=== PATIENT | male | born 1950 | race Caucasian/White ===

== ENCOUNTER 2020-01-29 06:40 | Inpatient (IN) ==
[~2020-01-29 06:40] MED LIST: Famotidine 20 MG/2 ML VIAL IVP ONE; Gabapentin 300 MG CAPSULE PO ONE; Ringers Solution, Lactated 1,000 ML IVC SCH
[2020-01-29] MEDS ORDERED: *HR* Propofol 200 MG/20 ML VIAL IVP ONE (07:03)
[2020-01-29] MEDS ORDERED: *HR* Remifentanil 1 MG VIAL IVP ONE ×3 (07:03→12:28)
[2020-01-29] MEDS ORDERED: *HR* Midazolam HCl 2 MG/2 ML VIAL ONE (07:03)
[2020-01-29] MEDS ORDERED: Lidocaine -MPF 2% 2 ML VIAL ONE (07:04)
[2020-01-29] MEDS ORDERED: Dexamethasone 4 MG/ML VIAL ONE (07:04)
[2020-01-29] MEDS ORDERED: *HR* Rocuronium Bromide 50 MG/5 ML VIAL ONE (07:04)
[2020-01-29] MEDS ORDERED: Lidocaine HCL 4 ML Topical Solution (Laryng-O-Jet Kit Sterile Pak) TP ONE (07:04)
[2020-01-29] MEDS ORDERED: *HR* Succinylcholine 200 MG/10 ML VIAL IVP ONE (07:04)
[2020-01-29] MEDS ORDERED: Ondansetron 4 MG/2 ML VIAL ONE (07:04)
[2020-01-29] MEDS ORDERED: CeFAZolin Syr 2,000MG/20 ML 2,000 MG/20 ML SYRINGE IVPB ONE (07:10)
[2020-01-29] MEDS ORDERED: *HR* FentaNYL (PF) 100 MCG/2 ML VIAL IVP PRN (07:45)
[2020-01-29] MEDS ORDERED: Albuterol 2.5 MG/3 ML NEBULIZER IH PRN (07:45)
[2020-01-29] MEDS ORDERED: Acetaminophen IV 1,000 MG/100 ML BAG IVPB ONE (07:45)
[2020-01-29] MEDS ORDERED: Bacitracin 50,000 UNIT, Polymyxin B Sulfate 500,000 UNIT, Sodium Chloride IRRigation 1,... IR ONE (07:45)
[2020-01-29] MEDS ORDERED: EPHEDrine 50 MG/ML VIAL ONE ×2 (08:20→09:55)
[2020-01-29] MEDS ORDERED: Albumin Human 5% 12.5 GM/250 ML IV.SOLN ONE ×2 (09:05)
[2020-01-29] MEDS ORDERED: 0.9 % Sodium Chloride 300 ML ONE (10:29)
[2020-01-29] MEDS ORDERED: *HR* HYDROMORPHONE 2 MG/ML VIAL ONE (13:55)
[2020-01-29] MEDS ORDERED: ceFAZolin 2,000 MG in Water for inj. (sterile) 20 ML IVP ONE (15:36)
[2020-01-29] MEDS ORDERED: CeFAZolin 2 GM/100 ML BAG IVPB ONE (16:00)
[2020-01-29] MEDS ORDERED: CeFAZolin 2 GM/120 ML BAG IVPB ONE (16:00)
[2020-01-29] MEDS: *HR* HYDROmorphone PF 0.5 MG/0.5 ML SYRINGE IVP PRN ×4 (16:22→17:17)
[2020-01-29] MEDS ORDERED: Naloxone 0.4 MG/ML INJ IVP PRN (17:55)
[2020-01-29] MEDS ORDERED: Ondansetron 4 MG/2 ML VIAL IVP PRN (17:55)
[2020-01-29] MEDS: Ringers Solution, Lactated 1,000 ML IVC SCH (18:13)
[2020-01-29] MEDS: *HR* OxyCODONE Immed Rel 5 MG TABLET PO PRN (20:07)
[2020-01-29] MEDS: *HR* HYDROcodone/Acet 5/325 mg TABLET PO PRN (21:41)
[2020-01-29] MEDS: Gabapentin 400 MG CAPSULE PO SCH (21:41)
[2020-01-30] MEDS: *HR* OxyCODONE Immed Rel 5 MG TABLET PO PRN ×5 (00:16→20:58)
[2020-01-30] MEDS: CeFAZolin 2 GM/120 ML BAG IVPB SCH ×2 (00:16→08:20)
[2020-01-30 05:48] LABS: Basophils % 0.2 %; Hematocrit 32.8 % (37.5-50.1); Hemoglobin 10.7 g/dL (12.9-16.9); Immature Granulocytes % 0.4 % (0-4); Lymphocytes # 1.2 K/mcL (0.6-4.6); Lymphocytes % 10.5 %; Mean Corpuscular HGB Conc 32.6 g/dL (31.6-35.5); Mean Corpuscular Hemoglobin 30.1 pg (28.0-33.3); Mean Corpuscular Volume 92.1 fL (83.0-100.0); Mean Platelet Volume 9.8 fL (9.4-12.4); Monocytes # 1.3 K/mcL (0.0-1.3); Monocytes % 11.1 %; Platelet Count 149 K/mcL (140-400); Red Blood Count 3.56 M/mcL (4.19-5.50); Red Cell Distribution Width 12.6 % (11.5-14.5); Segmented Neutrophils % 77.8 %; White Blood Count 11.5 K/mcL (4.3-11.1)
[2020-01-30 06:07] LABS: BUN/Creatinine Ratio 18 (6-26); Blood Urea Nitrogen 17 mg/dL (8-23); Calcium 7.9 mg/dL (8.6-10.3); Carbon Dioxide 28 mEq/L (23-29); Chloride 105 mEq/L (98-107); Glucose 124 mg/dL (70-105); Osmolality,Calculated 287 (280-300); Potassium 3.6 mEq/L (3.5-5.1); Sodium 137 mEq/L (136-145); eGFR For African Americans > 60 (> 60); eGFR For Non-African Americans > 60 (> 60)
[2020-01-30] MEDS: Lactobacillus 1 EACH CAP.SPRINK PO SCH (08:19)
[2020-01-30] MEDS: Gabapentin 400 MG CAPSULE PO SCH ×2 (08:19→20:58)
[2020-01-30] MEDS: Cholecalciferol (D-3) 1,000 UNIT (25MCG) TABLET PO SCH (08:19)
[2020-01-30] MEDS ORDERED: NON-FORMULARY MEDICATION 1 EACH EACH (Cranberry 500 MG) PO SCH (09:00)
[2020-01-30] MEDS ORDERED: [UNRECOGNIZED DRUG - OTHER] PO SCH (09:00)
[2020-01-30] MEDS: Gabapentin 300 MG CAPSULE PO SCH (15:11)
[2020-01-30] MEDS: Ringers Solution, Lactated 1,000 ML IVC SCH ×2 (15:27→20:36)
[2020-01-30] MEDS: tiZANidine 4 MG TABLET PO PRN ×2 (15:27→20:57)
[2020-01-30] MEDS: Acetaminophen 325 MG TABLET PO PRN ×2 (16:23→22:27)
[2020-01-30 18:44] LABS: Bilirubin,Urine Negative (Negative); Blood,Urine Moderate (Negative); Clarity,Urine Clear (Clear); Color,Urine Light-Yellow (Yellow); Glucose,Urine (UA) Normal (Normal); Ketones,Urine 10 mg/dL (Negative); Leukocyte Esterase,Urine Negative (Negative); Mucus,Urine Few per lpf (None-Few); Nitrite,Urine Negative (Negative); Protein,Urine Trace mg/dL (Neg-Trace); RBC,Urine 50-100 per hpf (0-3); Squamous Epithelial Cell,Urine Few per hpf (None-Few); Urobilinogen,Urine Normal (Normal); WBC,Urine 0-3 per hpf (0-3)
[2020-01-31 01:28] LABS: Hematocrit 29.3 % (37.5-50.1); Hemoglobin 9.6 g/dL (12.9-16.9); Mean Corpuscular HGB Conc 32.8 g/dL (31.6-35.5); Mean Corpuscular Hemoglobin 30.5 pg (28.0-33.3); Mean Platelet Volume 10.2 fL (9.4-12.4); Platelet Count 133 K/mcL (140-400); Red Blood Count 3.15 M/mcL (4.19-5.50); Red Cell Distribution Width 12.8 % (11.5-14.5); White Blood Count 12.1 K/mcL (4.3-11.1)
[2020-01-31] MEDS: Ringers Solution, Lactated 1,000 ML IVC SCH ×3 (01:32→20:29)
[2020-01-31] MEDS: *HR* OxyCODONE Immed Rel 5 MG TABLET PO PRN ×4 (01:32→19:16)
[2020-01-31] MEDS ORDERED: Acetaminophen IV 500 MG/50 ML BAG IVPB ONE ×2 (01:36→05:59)
[2020-01-31] MEDS: cefTRIAXone 1,000 MG in Water for inj. (sterile) 10 ML IVP SCH (02:07)
[2020-01-31] MEDS: Azithromycin 500 MG in D5% in Water 250 ML IVPB SCH (02:24)
[2020-01-31] MEDS: tiZANidine 4 MG TABLET PO PRN ×2 (06:09→19:15)
[2020-01-31 06:33] LABS: Alanine Aminotransferase 22 Units/L (7-52); Albumin 3.3 g/dL (3.5-5.7); Albumin/Globulin Ratio 1.4 (1.1-2.2); Alkaline Phosphatase 33 Units/L (34-104); Aspartate Amino Transferase 52 Units/L (13-39); BUN/Creatinine Ratio 14 (6-26); Bilirubin,Total 0.6 mg/dL (0.3-1.0); Blood Urea Nitrogen 14 mg/dL (8-23); Calcium 7.9 mg/dL (8.6-10.3); Carbon Dioxide 26 mEq/L (23-29); Chloride 104 mEq/L (98-107); Globulin 2.3 g/dL (2.4-3.5); Glucose 115 mg/dL (70-105); Osmolality,Calculated 283 (280-300); Phosphorous 1.9 mg/dL (2.7-4.5); Potassium 3.8 mEq/L (3.5-5.1); Sodium 136 mEq/L (136-145); Total Protein 5.6 g/dL (6.4-8.9); eGFR For African Americans > 60 (> 60); eGFR For Non-African Americans > 60 (> 60)
[2020-01-31] MEDS: Gabapentin 400 MG CAPSULE PO SCH ×2 (08:17→19:15)
[2020-01-31] MEDS: Lactobacillus 1 EACH CAP.SPRINK PO SCH (08:17)
[2020-01-31] MEDS: Cholecalciferol (D-3) 1,000 UNIT (25MCG) TABLET PO SCH (08:18)
[2020-01-31] MEDS: *HR* HYDROcodone/Acet 5/325 mg TABLET PO PRN (08:18)
[2020-01-31 11:08] LABS: Adenovirus Not Detected (Not Detect); Bordetella Pertussis Not Detected (Not Detect); Chlamydophila pneumoniae Not Detected (Not Detect); Coronavirus 229E Not Detected (Not Detect); Coronavirus HKU1 Not Detected (Not Detect); Coronavirus NL63 Not Detected (Not Detect); Coronavirus OC43 Not Detected (Not Detect); Human Metapneumovirus Not Detected (Not Detect); Human Rhinovirus/Enterovirus Not Detected (Not Detect); Influenza A Subtype 2009 H1 Not Detected (Not Detect); Influenza B Not Detected (Not Detect); Mycoplasma pneumoniae Not Detected (Not Detect); Parainfluenza Virus 1 Not Detected (Not Detect); Parainfluenza Virus 2 Not Detected (Not Detect); Parainfluenza Virus 3 Not Detected (Not Detect); Parainfluenza Virus 4 Not Detected (Not Detect); Respiratory Syncytial Virus Not Detected (Not Detect); SARS-CoV-2 Not Detected (Not Detect)
[2020-01-31] MEDS: Gabapentin 300 MG CAPSULE PO SCH (15:48)
[2020-02-01] MEDS: tiZANidine 4 MG TABLET PO PRN (02:19)
[2020-02-01] MEDS: *HR* HYDROcodone/Acet 5/325 mg TABLET PO PRN (02:19)
[2020-02-01] MEDS: Azithromycin 500 MG in D5% in Water 250 ML IVPB SCH (02:19)
[2020-02-01] MEDS: cefTRIAXone 1,000 MG in Water for inj. (sterile) 10 ML IVP SCH (02:20)
[2020-02-01] MEDS ORDERED: 0.9 % Sodium Chloride 250 ML IVC ONE (04:05)
[2020-02-01] MEDS ORDERED: Acetaminophen IV 500 MG/50 ML BAG IVPB ONE (04:24)
[2020-02-01] MEDS: Ringers Solution, Lactated 1,000 ML IVC SCH (04:41)
[2020-02-01 05:19] LABS: Basophils % 0.3 %; Eosinophils % 0.1 %; Hematocrit 23.8 % (37.5-50.1); Immature Granulocytes % 0.3 % (0-4); Lymphocytes # 1.4 K/mcL (0.6-4.6); Lymphocytes % 11.3 %; Mean Corpuscular HGB Conc 33.2 g/dL (31.6-35.5); Mean Corpuscular Hemoglobin 31.2 pg (28.0-33.3); Mean Corpuscular Volume 94.1 fL (83.0-100.0); Mean Platelet Volume 10.4 fL (9.4-12.4); Monocytes # 1.6 K/mcL (0.0-1.3); Monocytes % 12.9 %; Neutrophils # 9.3 K/mcL (1.6-8.9); Platelet Count 113 K/mcL (140-400); Red Blood Count 2.53 M/mcL (4.19-5.50); Red Cell Distribution Width 12.5 % (11.5-14.5); Segmented Neutrophils % 75.1 %; White Blood Count 12.4 K/mcL (4.3-11.1)
[2020-02-01 05:20] LABS: Hemoglobin 7.9 g/dL (12.9-16.9)
[2020-02-01 05:38] LABS: BUN/Creatinine Ratio 16 (6-26); Blood Urea Nitrogen 16 mg/dL (8-23); Calcium 7.5 mg/dL (8.6-10.3); Carbon Dioxide 23 mEq/L (23-29); Chloride 100 mEq/L (98-107); Glucose 156 mg/dL (70-105); Osmolality,Calculated 278 (280-300); Potassium 3.6 mEq/L (3.5-5.1); Sodium 132 mEq/L (136-145); eGFR For African Americans > 60 (> 60); eGFR For Non-African Americans > 60 (> 60)
[2020-02-01 07:10] LABS: Hematocrit 25.3 % (37.5-50.1); Hemoglobin 8.3 g/dL (12.9-16.9)
[2020-02-01] MEDS ORDERED: *HR* HYDROcodone/Acet 5/325 mg TABLET PO PRN (08:03)
[2020-02-01] MEDS ORDERED: Acetaminophen 325 MG TABLET PO PRN (08:14)
[2020-02-01] MEDS: Gabapentin 400 MG CAPSULE PO SCH ×2 (08:45→19:38)
[2020-02-01] MEDS: Cholecalciferol (D-3) 1,000 UNIT (25MCG) TABLET PO SCH (08:45)
[2020-02-01] MEDS: Lactobacillus 1 EACH CAP.SPRINK PO SCH (08:46)
[2020-02-01] MEDS: 0.9 % Sodium Chloride 1,000 ML IVC SCH (08:46)
[2020-02-01] MEDS: MetroNIDAZOLE 500 MG/100 ML 500 MG/100 ML BAG IVPB SCH ×3 (08:46→23:43)
[2020-02-01] MEDS: Ipratropium/Albuterol Neb 3 ML IH SCH ×4 (09:01→21:11)
[2020-02-01 09:03] LABS: Phosphorous 1.8 mg/dL (2.7-4.5)
[2020-02-01] MEDS: *HR* OxyCODONE Immed Rel 5 MG TABLET PO PRN ×2 (10:03→19:40)
[2020-02-01] MEDS ORDERED: diazePAM 10 MG TABLET PO ONE (11:08)
[2020-02-01 13:51] LABS: Hematocrit 28.9 % (37.5-50.1); Hemoglobin 9.5 g/dL (12.9-16.9); Mean Corpuscular HGB Conc 32.9 g/dL (31.6-35.5); Mean Corpuscular Hemoglobin 30.6 pg (28.0-33.3); Mean Corpuscular Volume 93.2 fL (83.0-100.0); Mean Platelet Volume 10.1 fL (9.4-12.4); Platelet Count 126 K/mcL (140-400); Red Cell Distribution Width 12.4 % (11.5-14.5); White Blood Count 13.2 K/mcL (4.3-11.1)
[2020-02-01] MEDS: Gabapentin 300 MG CAPSULE PO SCH (14:56)
[2020-02-01] MEDS ORDERED: diazePAM 2 MG TABLET PO ONE (19:58)
[2020-02-01] MEDS ORDERED: *HR* Promethazine 25 MG/ML VIAL IVP ONE (21:22)
[2020-02-02] MEDS: Azithromycin 500 MG in D5% in Water 250 ML IVPB SCH (01:02)
[2020-02-02] MEDS: cefTRIAXone 1,000 MG in Water for inj. (sterile) 10 ML IVP SCH (01:02)
[2020-02-02] MEDS: 0.9 % Sodium Chloride 1,000 ML IVC SCH ×2 (01:03→21:44)
[2020-02-02] MEDS ORDERED: Pantoprazole 40 MG VIAL IVP SCH (02:08)
[2020-02-02 03:14] LABS: Basophils % 0.1 %; Hemoglobin 8.9 g/dL (12.9-16.9); Immature Granulocytes % 0.5 % (0-4); Lymphocytes # 0.4 K/mcL (0.6-4.6); Lymphocytes % 3.4 %; Mean Corpuscular Hemoglobin 30.6 pg (28.0-33.3); Mean Corpuscular Volume 92.8 fL (83.0-100.0); Mean Platelet Volume 10.5 fL (9.4-12.4); Monocytes % 8.2 %; Neutrophils # 11.2 K/mcL (1.6-8.9); Platelet Count 153 K/mcL (140-400); Red Blood Count 2.91 M/mcL (4.19-5.50); Red Cell Distribution Width 12.3 % (11.5-14.5); Segmented Neutrophils % 87.8 %; White Blood Count 12.7 K/mcL (4.3-11.1)
[2020-02-02 03:32] LABS: BUN/Creatinine Ratio 25 (6-26); Blood Urea Nitrogen 20 mg/dL (8-23); Calcium 7.7 mg/dL (8.6-10.3); Carbon Dioxide 21 mEq/L (23-29); Chloride 101 mEq/L (98-107); Glucose 153 mg/dL (70-105); Osmolality,Calculated 280 (280-300); Potassium 3.5 mEq/L (3.5-5.1); Sodium 132 mEq/L (136-145); eGFR For African Americans > 60 (> 60); eGFR For Non-African Americans > 60 (> 60)
[2020-02-02] MEDS: Ipratropium/Albuterol Neb 3 ML IH SCH ×4 (03:46→22:01)
[2020-02-02] MEDS: MetroNIDAZOLE 500 MG/100 ML 500 MG/100 ML BAG IVPB SCH ×2 (07:48→20:24)
[2020-02-02] MEDS: Gabapentin 400 MG CAPSULE PO SCH ×2 (07:49→21:44)
[2020-02-02] MEDS: Lactobacillus 1 EACH CAP.SPRINK PO SCH (07:50)
[2020-02-02] MEDS: Cholecalciferol (D-3) 1,000 UNIT (25MCG) TABLET PO SCH (07:51)
[2020-02-02 10:07] LABS: Hematocrit 26.7 % (37.5-50.1)
[2020-02-02] MEDS ORDERED: *HR* FentaNYL (PF) 100 MCG/2 ML VIAL ONE (11:48)
[2020-02-02] MEDS ORDERED: *HR* Propofol 200 MG/20 ML VIAL IVP ONE (11:49)
[2020-02-02] MEDS ORDERED: Dexamethasone 4 MG/ML VIAL ONE ×2 (12:01→12:06)
[2020-02-02] MEDS ORDERED: Ondansetron 4 MG/2 ML VIAL ONE (12:01)
[2020-02-02] MEDS ORDERED: Lidocaine -MPF 2% 2 ML VIAL ONE (12:01)
[2020-02-02] MEDS ORDERED: Ketorolac 30 MG/ML VIAL ONE (12:04)
[2020-02-02 16:03] LABS: Hematocrit 25.2 % (37.5-50.1); Hemoglobin 8.6 g/dL (12.9-16.9)
[2020-02-02] MEDS ORDERED: 0.9 % Sodium Chloride 250 ML ONE (16:21)
[2020-02-02] MEDS: Sucralfate 1 GM TABLET PO SCH (20:26)
[2020-02-02] MEDS: Gabapentin 300 MG CAPSULE PO SCH (20:57)
[2020-02-02] MEDS: *HR* OxyCODONE Immed Rel 5 MG TABLET PO PRN (21:44)
[2020-02-02 22:08] LABS: Hematocrit 27.1 % (37.5-50.1); Hemoglobin 9.1 g/dL (12.9-16.9)
[2020-02-03] MEDS: *HR* OxyCODONE Immed Rel 5 MG TABLET PO PRN ×3 (02:08→17:25)
[2020-02-03] MEDS: cefTRIAXone 1,000 MG in Water for inj. (sterile) 10 ML IVP SCH (02:09)
[2020-02-03] MEDS: Azithromycin 500 MG in D5% in Water 250 ML IVPB SCH (02:10)
[2020-02-03 03:56] LABS: Basophils % 0.1 %; Immature Granulocytes % 0.5 % (0-4); Lymphocytes # 0.6 K/mcL (0.6-4.6); Lymphocytes % 5.6 %; Mean Corpuscular HGB Conc 33.3 g/dL (31.6-35.5); Mean Corpuscular Hemoglobin 30.5 pg (28.0-33.3); Mean Corpuscular Volume 91.6 fL (83.0-100.0); Mean Platelet Volume 10.2 fL (9.4-12.4); Monocytes # 0.9 K/mcL (0.0-1.3); Monocytes % 8.4 %; Neutrophils # 9.1 K/mcL (1.6-8.9); Platelet Count 180 K/mcL (140-400); Red Blood Count 2.62 M/mcL (4.19-5.50); Red Cell Distribution Width 13.2 % (11.5-14.5); Segmented Neutrophils % 85.4 %; White Blood Count 10.7 K/mcL (4.3-11.1)
[2020-02-03 04:11] LABS: BUN/Creatinine Ratio 27 (6-26); Blood Urea Nitrogen 24 mg/dL (8-23); Calcium 7.2 mg/dL (8.6-10.3); Carbon Dioxide 24 mEq/L (23-29); Chloride 106 mEq/L (98-107); Glucose 155 mg/dL (70-105); Osmolality,Calculated 291 (280-300); Phosphorous 2.4 mg/dL (2.7-4.5); Potassium 3.7 mEq/L (3.5-5.1); Sodium 137 mEq/L (136-145); eGFR For African Americans > 60 (> 60); eGFR For Non-African Americans > 60 (> 60)
[2020-02-03] MEDS: Ipratropium/Albuterol Neb 3 ML IH SCH ×3 (04:18→15:30)
[2020-02-03] MEDS: MetroNIDAZOLE 500 MG/100 ML 500 MG/100 ML BAG IVPB SCH ×3 (05:05→20:48)
[2020-02-03] MEDS: Gabapentin 400 MG CAPSULE PO SCH ×2 (08:59→20:48)
[2020-02-03] MEDS: Lactobacillus 1 EACH CAP.SPRINK PO SCH (08:59)
[2020-02-03] MEDS: 0.9 % Sodium Chloride 1,000 ML IVC SCH ×3 (09:00→20:48)
[2020-02-03] MEDS: Sucralfate 1 GM TABLET PO SCH ×3 (09:00→17:21)
[2020-02-03] MEDS: Cholecalciferol (D-3) 1,000 UNIT (25MCG) TABLET PO SCH (09:02)
[2020-02-03] MEDS: Gabapentin 300 MG CAPSULE PO SCH (14:35)
[2020-02-03] MEDS ORDERED: Ipratropium/Albuterol Neb 3 ML IH PRN (16:46)
[2020-02-03] MEDS ORDERED: Sennosides/Docusate Sodium TABLET PO PRN (18:45)
[2020-02-04] MEDS: cefTRIAXone 1,000 MG in Water for inj. (sterile) 10 ML IVP SCH (01:23)
[2020-02-04] MEDS: Azithromycin 500 MG in D5% in Water 250 ML IVPB SCH (01:23)
[2020-02-04] MEDS: *HR* OxyCODONE Immed Rel 5 MG TABLET PO PRN ×5 (01:23→22:26)
[2020-02-04] MEDS: MetroNIDAZOLE 500 MG/100 ML 500 MG/100 ML BAG IVPB SCH ×3 (05:40→20:40)
[2020-02-04 06:03] LABS: Hematocrit 24.7 % (37.5-50.1); Hemoglobin 7.9 g/dL (12.9-16.9)
[2020-02-04] MEDS: Sucralfate 1 GM TABLET PO SCH ×3 (08:06→17:42)
[2020-02-04] MEDS: Gabapentin 400 MG CAPSULE PO SCH ×2 (08:06→20:40)
[2020-02-04] MEDS: Cholecalciferol (D-3) 1,000 UNIT (25MCG) TABLET PO SCH (08:06)
[2020-02-04] MEDS: Lactobacillus 1 EACH CAP.SPRINK PO SCH (08:06)
[2020-02-04 09:41] LABS: % Iron Saturation 14 % (20-55); Iron 23 mcg/dL (65-175); Transferrin 115 mg/dL (203-362)
[2020-02-04 10:00] LABS: Ferritin 460 ng/mL (20-250)
[2020-02-04] MEDS: Gabapentin 300 MG CAPSULE PO SCH (15:10)
[2020-02-04] MEDS ORDERED: Iron Sucrose Complex 200 MG in 0.9 % Sodium Chloride 100 ML IVPB ONE (16:00)
[2020-02-04] MEDS: Cefdinir 300 MG CAPSULE PO SCH (20:39)
[2020-02-05] MEDS: *HR* OxyCODONE Immed Rel 5 MG TABLET PO PRN (05:09)
[2020-02-05] MEDS: MetroNIDAZOLE 500 MG/100 ML 500 MG/100 ML BAG IVPB SCH ×2 (05:09→14:52)
[2020-02-05 05:55] LABS: Hemoglobin 8.9 g/dL (12.9-16.9)
[2020-02-05] MEDS: Sucralfate 1 GM TABLET PO SCH ×2 (07:50→13:17)
[2020-02-05] MEDS: Gabapentin 400 MG CAPSULE PO SCH (07:50)
[2020-02-05] MEDS: Cefdinir 300 MG CAPSULE PO SCH (07:50)
[2020-02-05] MEDS: Lactobacillus 1 EACH CAP.SPRINK PO SCH (07:50)
[2020-02-05] MEDS: Cholecalciferol (D-3) 1,000 UNIT (25MCG) TABLET PO SCH (07:50)
[2020-02-05 11:34] VITALS: BP 101/59
== END 2020-02-05 16:00 | DRG 459 ==
LOC: SAMDAY 06:40 → 3NENU 17:41
PROVIDERS: ADMIT Orthopaedic Surgery Orthopaedic Surgery of the Spine; ATTEND Orthopaedic Surgery Orthopaedic Surgery of the Spine